=== PATIENT | male | born 1930 | race Caucasian/White ===

== ENCOUNTER 2016-06-20 16:13 | Inpatient (IN) | payer MEDICARE ==
--- NOTE | ~2016-06-20 | DS ---
Discharge Summary [facility] [address] [place]. [address] NAME: PERLA GONSALES : 32 STATUS : DIS IN PAT#: [id number] AGE: 86 ADM/REG DATE : 06/20/16 MR#: [id number] REPORT SERV DATE: 06/24/16 DICTATED BY: ANABELL PHELPS DATE: 06/23/16 REPORT STATUS : Draft TRANSCRIBED BY: MODL DATE: 06/23/16 ADMISSION DATE: 06/20/2016 DISCHARGE DATE: 06/23/2016 DISCHARGE DIAGNOSES: 1. Atrial fibrillation with rapid ventricular rate. Cardizem CD 180 mg once a day was added and his metoprolol was increased to 125 mg twice a day. 2. Congestive heart failure, acute systolic dysfunction, which resolved. 3. Clinical chronic obstructive pulmonary disease exacerbation. 4. Chronic Coumadin use. His INR has been supratherapeutic and we are going to resume his Coumadin dose in two days. CONSULT: Dr. Garza. PROCEDURES: Echocardiogram showed mild decreased left ventricular systolic function with an estimated ejection fraction of 40%. Probable right ventricle chamber size and systolic being intact; however, has moderate severe biatrial enlargement with mild tricuspid regurg and mitral regurg. HISTORY OF PRESENT ILLNESS: This is an 86-year-old male patient, who came to the hospital after seen by the [facility] emergency room. Please see dictated H and P. HOSPITAL COURSE: He was admitted to hospital with acute heart failure. He had a diuresis treatment and recovered very quickly. However, his x-ray was showing more reticular fibrotic change. He was also put on the bronchodilator treatment. His oxygen was much improved and his symptoms improved. Had a repeated echocardiogram at this time, which showed mildly decreased left ventricular function. His heart rate has been range of 80 to 140s through the hospital stay. However, he never felt any palpitation or flow rate at all. His beta-domenico was increased to 125 mg twice a day and Cardizem was added on the regimen and also, he is on anticoagulation with Coumadin, which was on hold for three days due to the supratherapeutic INR. Now, he is ambulating in the hallway without any problem. He will follow by Dr. Garza as an outpatient. He will be discharged to home in stable condition. DISCHARGE MEDICATIONS: 1. Metoprolol was increased to 125 mg twice a day. 2. Cardizem CD 180 mg once a day. 3. Lasix 40 mg once a day. 4. Hydrea 500 mg twice a day. 5. Lisinopril 5 mg once a day. 6. Flomax 0.4 mg once a day. 7. Coumadin 2 mg once in the nighttime. We are going to restart on 06/24/2016. 8. Digoxin 0.125 mg once a day and will be resumed on 06/24/2016. DISPOSITION: The patient is discharged home in stable condition after recovering from the heart failure and COPD exacerbation clinically and also, we made an appointment at Pulmonary Discharge [address] [address] NAME: PERLA GONSALES : 32 STATUS : DIS IN PAT#: [id number] AGE: 86 ADM/REG DATE : 06/20/16 MR#: [id number] REPORT SERV DATE: 06/24/16 DICTATED BY: ANABELL PHEPLS DATE: 06/23/16 REPORT STATUS : Draft TRANSCRIBED BY: GT DATE: 06/23/16 Clinic for further evaluation for reticular change on the x-rays. EKL/MODL Anabell Phelps M.D. / [id number] CC: Teresa Hillman MD
--- NOTE | ~2016-06-20 | CN ---
Consultation Report [facility] [address] [place]. [address] NAME: PERLA MEJIAS : 32 STATUS : ADM IN PAT#: [id number] AGE: 86 ADM/REG DATE : 06/20/16 MR#: [id number] REPORT SERV DATE: 06/21/16 DICTATED BY: APPLE BLANDON DATE: 06/20/16 REPORT STATUS : Draft TRANSCRIBED BY: MODL DATE: 06/20/16 CARDIOLOGY CONSULTATION. DATE OF CONSULTATION: 06/20/2016 REQUESTING PHYSICIAN: Anabell Phelps M.D. REASON FOR CONSULTATION: Probable congestive heart failure and atrial fibrillation. HISTORY OF PRESENT ILLNESS: Mr. Mejias is an 86-year-old gentleman who has been seeing physicians from the [facility] for some time. His most recent physician was Dr. Yaniv Ferrell who moved away about a year ago and he has not yet seen another [facility] physician. In the last few weeks, he has been having complaints of increasing shortness of breath and cough. He thought he may be having some chills and a low-grade fever as well. He went to a local urgent care office who had given him some erythromycin, but his symptoms did not improve. Last night, while lying down, he became very short of breath and ended up presenting to the [facility] emergency room with these complaints. There he underwent a chest x-ray. There was some question of a perihilar infiltrate, but laboratory work also demonstrated a very elevated natriuretic peptide of 11,941. The rest of his laboratory values were essentially unremarkable. His white count was 7.6, hematocrit was 35. Given that his care has basically been at [facility], he was accepted in transfer by Dr. Phelps. The patient has a known history of a nonischemic cardiomyopathy, ejection fraction of 35%. He has a history of chronic atrial fibrillation and is status post permanent pacemaker that was placed several years ago by Dr. Sutherland, his original [facility] marketing financial analyst. PAST MEDICAL HISTORY: Notable for: 1. Nonischemic cardiomyopathy, ejection fraction 35%. 2. Chronic atrial fibrillation. 3. History of a single-chamber pacemaker. HOME MEDICATIONS: Include digoxin, Lasix, Zestril, metoprolol, Flomax, and warfarin. FAMILY HISTORY: Noncontributory. Negative for premature coronary artery disease. SOCIAL HISTORY: Negative for tobacco or alcohol. REVIEW OF SYSTEMS: As noted above. All other systems reviewed are negative. PHYSICAL EXAMINATION: VITAL SIGNS: His blood pressure is 130/78, room air sat 93%, pulse of 110, in atrial fibrillation, respirations 16, he is afebrile. Consultation Report [facility] [address] [place]. [address] NAME: PERLA MEJIAS : 32 STATUS : ADM IN PAT#: [id number] AGE: 86 ADM/REG DATE : 06/20/16 MR#: [id number] REPORT SERV DATE: 06/21/16 DICTATED BY: APPLE BLANDON DATE: 06/20/16 REPORT STATUS : Draft TRANSCRIBED BY: GT DATE: 06/20/16 GENERAL: He is in no acute distress. Well developed, well nourished. HEENT: No icterus. Good dentition. NECK: Supple. No masses or thyromegaly LUNGS: Note some scattered wheezes in the lung allred. Breathing comfortably. No rales. COR: Irregularly irregular rhythm. Normal S1, S2. No S3 or S4. No murmurs, clicks, rubs. No JVD ABD: Soft, nondistended, nontender, no hepatosplenomegaly. EXT: No clubbing, cyanosis or edema. Peripheral pulses 2+/=bilaterally. SKIN: Warm and dry. No visible lesions. MS: Chest wall without deformity, no obvious clavicular fractures. NEURO/PSYCH: Oriented X3. No anxiety or depression. DIAGNOSTIC STUDIES: Telemetry reveals patient to be in atrial fibrillation with elevated ventricular response. EKG performed at [facility] shows atrial fibrillation, rapid ventricular response of 142 beats per minute, leftward axis, nonspecific ST-T wave abnormalities. Laboratory values otherwise show a PT/INR of 4.1. IMPRESSION: Likely congestive heart failure due to acute on chronic congestive heart failure secondary to left ventricle systolic dysfunction. PLAN: 1. IV diuresis. We will need to watch carefully for worsening renal insufficiency. 2. Continue patient's use of metoprolol and lisinopril. 3. Atrial fibrillation. This appears to be chronic. He is already on warfarin, although I would recommend holding at least tonight's dose and having pharmacy dose as his PT/INR is supratherapeutic. In terms of the rapid ventricular response, this is improving and likely will continue to improve as IV diuresis occurs and the patient has less respiratory distress. 4. We will plan for echocardiogram to reassess LV systolic function. ELLEN/GT Apple Blandon M.D. / [id number]
--- NOTE | ~2016-06-20 | HP ---
History And Physical [place] [id number] [place]. [address] NAME: PERLA GONSALES : 32 STATUS : ADM IN [facility]#: [id number] AGE: 86 ADM/REG DATE : 06/20/16 MR#: [id number] REPORT SERV DATE: 06/20/16 DICTATED BY: ANABELL PHELPS DATE: 06/20/16 REPORT STATUS : Draft TRANSCRIBED BY: MODL DATE: 06/20/16 DATE OF ADMISSION: 06/20/2016 CHIEF COMPLAINT: Short of breath, started giving him trouble very much last night. HISTORY OF PRESENT ILLNESS: This is an 86-year-old male patient, who has been having this shortness of breath for about three to four weeks, had to go to the emergency room at the [facility] today because last night was significantly severe. He was not able to sleep and also he was coughing all night. It has been going on for a few weeks. He visited an urgent care a few weeks ago when he started having this problem. At that time, he was treated with a dose of antibiotics and also injection of some medication. He had a little improvement; however, his shortness of breath gradually came back again. Last night, he was not able to have any good sleep. He noticed orthopnea last night and also dry cough. Denies any fever. Denies any nausea or vomiting. Denies any weight gain. He does have [id number] lower extremity swelling since the atrial fibrillation. He has diagnosis of atrial fibrillation with sick sinus syndrome. Dr. Juares was his primary healthcare advisory services manager in the past, who implanted his pacemaker. Since he is retired, he had Dr. Ferrell. The last visit with Dr. Ferrell was two years ago. However, Dr. Ferrell left practice, now he is supposed to see Dr. Hodge, but he never met Dr. Hodge. He believes his last pacemaker interrogation was three months ago. His cough has been dry. There is no running of fever. No nausea, vomiting. No changes in urination habit or any constipation or diarrhea. He denies any bleeding including melena or hematochezia. Therefore, he was found to have atrial fibrillation with rapid rate at [facility] and the patient has been subsequently transferred to the [facility] to get further evaluation and treatment. Currently, he has had shortness of breath and cough in dry nature. Does not have any chest pain. REVIEW OF SYSTEMS: All systems reviewed and negative, but mentioned above. PAST MEDICAL HISTORY: 1. Atrial fibrillation. 2. History of pacemaker. 3. Congestive heart failure. EF was 35%, echocardiogram 2012. 4. Hypertension. 5. Colon cancer, status post colectomy. 6. Prostate cancer, status post radiation. History And Physical [address] [address] NAME: PERLA GONSALES : 32 STATUS : ADM IN [facility]#: [id number] AGE: 86 ADM/REG DATE : 06/20/16 MR#: [id number] REPORT SERV DATE: 06/20/16 DICTATED BY: ANABELL PHELPS DATE: 06/20/16 REPORT STATUS : Draft TRANSCRIBED BY: GT DATE: 06/20/16 SURGERIES: Had a colectomy. ALLERGIES: NO KNOWN DRUG ALLERGIES. SOCIAL HISTORY: 1. He used to smoked a couple of packs a day since age 17, but he quit more than five years ago. 2. Denies any continuous drinking, but he gets an occasional glass of wine. 3. He does not need any walking aids and he still drives a car. He lives with his . MEDICATIONS AT HOME: 1. Furosemide 40 mg once a day. 2. Hydrea 500 mg twice a day. 3. Lisinopril 5 mg twice a day. 4. Metoprolol 100 mg twice a day. 5. Flomax 0.4 mg once a day. 6. Warfarin 2 mg once a day. FAMILY HISTORY: Noncontributory. PHYSICAL EXAMINATION: VITAL SIGNS: Blood pressure is 130/78, respiratory rate is 18, temperature was 97.9, saturation is 93% room air. GENERAL APPEARANCE: He is alert, awake, and not in acute distress. Elderly gentleman. HEENT: Pupils are equal, round, and reactive to light. Conjunctivae are not anemic. NECK: There is jugular venous distention noted. No nodes palpable. CHEST: Lower left side has crackles. Otherwise clear. CARDIOVASCULAR: Has irregular rate and I do not appreciate significant murmurs, rubs, or gallops. ABDOMEN: Bowel sounds present and soft. EXTREMITIES: Pulses are intact. Cold extremities. LABORATORY DATA: From the [facility] showed sodium 138, potassium 3.8, chloride 102, bicarb 29, BUN 26, creatinine 1.1. Blood sugar was 174. WBC was 7.6, hemoglobin 12, platelet count was 535. BNP was 11,941. Troponin was 0.02. Chest x-ray was reviewed from the [facility]. Has some vascular congestion. ASSESSMENT AND PLAN: 1. Atrial fibrillation with rapid ventricular rate. 2. Acute on chronic systolic dysfunction. 3. Chronic kidney disease. 4. History of prostate and colon cancer. 5. Chronic atrial fibrillation. 6. Chronic Coumadin use. The patient will be admitted to cardiac monitoring unit. We are going to consult healthcare advisory services manager, resume beta-domenico, and rate control with additional History And Physical [address] [address] NAME: PERLA GONSALES : 32 STATUS : ADM IN [facility]#: [id number] AGE: 86 ADM/REG DATE : 06/20/16 MR#: [id number] REPORT SERV DATE: 06/20/16 DICTATED BY: ANABELL PHELPS DATE: 06/20/16 REPORT STATUS : Draft TRANSCRIBED BY: MODL DATE: 06/20/16 calcium channel domenico. Also, we are going to administrate IV diuretics and we are going to repeat echocardiogram, and he voiced understanding about the current plan of care and all the questions are answered. EKL/MODL Anabell Phelps M.D. / [id number] CC: Teresa Hillman Jr., M.D. Martha Ziegler, MD
[~2016-06-20 16:13] MED LIST: CARDCD300 PO; FLOMAX4 PO; HYDREA PO; JANTOVEN2.5 MG PO; LOP50 PO
[2016-06-20] MEDS ORDERED: L40 PO (18:42)
[2016-06-20] MEDS ORDERED: VITAMIN D1000 UNI1 PO (18:42)
[2016-06-20] MEDS ORDERED: LOP100 PO (18:42)
[2016-06-20] MEDS ORDERED: FLOMAX4 PO (18:43)
[2016-06-20] MEDS ORDERED: ZESTRIL5 MG PO (18:43)
[2016-06-20] MEDS ORDERED: HYDREA PO (18:43)
[2016-06-20] MEDS ORDERED: LAN125 PO (18:43)
[2016-06-20] MEDS ORDERED: JANTOVEN2 MG PO (18:44)
[2016-06-20 19:17] LABS: INTERNATIONAL NORMAL RATI 4.1 UNITS (-)
[2016-06-20 19:18] LABS: PROTIME (NOT ORD) 39.3 SEC (12.0-14.5)
[2016-06-21 05:45] LABS: INTERNATIONAL NORMAL RATI 4.6 UNITS (-)
[2016-06-21 05:46] LABS: PROTIME (NOT ORD) 42.8 SEC (12.0-14.5)
[2016-06-21 05:54] LABS: CALCIUM, SERUM 8.3 MG/DL (8.5-10.4); CHLORIDE, SERUM 104 MMOL/L (96-112); CO2 (CARBON DIOXIDE) 27 MMOL/L (24-34); CREATININE 0.99 MG/DL (0.70-1.30); GFR AFRICAN AMERICAN 81 ML/MIN (>=60); GFR NON AFRICAN AMERICAN 70 ML/MIN (>=60); SODIUM, SERUM 140 MMOL/L (135-148)
[2016-06-21 05:58] LABS: BUN (BLOOD UREA NITROGEN) 21 MG/DL (6-23); GLUCOSE, SERUM 103 MG/DL (60-99)
[2016-06-22 07:20] LABS: INTERNATIONAL NORMAL RATI 3.3 UNITS (-); PROTIME (NOT ORD) 33.3 SEC (12.0-14.5)
[2016-06-22 07:21] LABS: BASOPHILS 0.1 %; BASOPHILS ABSOLUTE 0.01 10/3/uL (0.0-0.16); EOSINOPHILS 0 %; HEMATOCRIT 34.6 % (40.0-51.0); HEMOGLOBIN 12.3 g/dL (13.6-17.8); IMMATURE GRANULOCYTES 0.6 %; IMMATURE GRANULOCYTES ABSOLUTE 0.06 10/3/uL (0.0-0.11); LYMPHOCYTES 4.8 %; MEAN CORPUS HGB CONC 35.5 g/dL (32.0-36.0); MEAN CORPUSCULAR HEMOGLOB 46.2 pg (26.0-34.0); MEAN PLATELET VOLUME 9.4 fL (9.2-13.0); MONOCYTES 1.9 %; NEUTROPHILS 92.6 %; NEUTROPHILS ABSOLUTE 9.71 10/3/uL (2.02-8.40); RBC DISTRIBUTION WIDTH 13.7 % (12.0-16.0); WHITE BLOOD CELLS 10.5 10/3/uL (4.5-10.5)
[2016-06-22 07:23] LABS: MANUAL DIFF NO %; MEAN CORPUSCULAR VOLUME 130.1 fL (80-100); PLATELET COUNT 510 10/3/uL (150-400); RED CELL COUNT 2.66 10/6/uL (4.7-6.1)
[2016-06-22 07:30] LABS: A/G RATIO 0.8 (0.7-1.9); ALBUMIN 2.8 G/DL (3.5-5.0); ALKALINE PHOSPHATASE 107 U/L (45-117); CALCIUM, SERUM 8.3 MG/DL (8.5-10.4); CHLORIDE, SERUM 103 MMOL/L (96-112); CO2 (CARBON DIOXIDE) 26 MMOL/L (24-34); GFR AFRICAN AMERICAN 64 ML/MIN (>=60); GFR NON AFRICAN AMERICAN 55 ML/MIN (>=60); GLOBULIN 3.6 G/DL (2.5-4.1); POTASSIUM, SERUM 4.2 MMOL/L (3.5-5.3); SGOT(AST) 16 U/L (5-40); SGPT(ALT) 23 U/L (5-65); SODIUM, SERUM 140 MMOL/L (135-148); TOTAL BILIRUBIN 0.6 MG/DL (0-1.2); TOTAL PROTEIN 6.4 G/DL (6.0-8.5)
[2016-06-22 07:31] LABS: BUN (BLOOD UREA NITROGEN) 28 MG/DL (6-23); GLUCOSE, SERUM 174 MG/DL (60-99)
[2016-06-22 08:38] LABS: MACROCYTES 4+ (>50/OIF) (0-5/OIF); PLATELET ESTIMATE SLT INC (ADEQUATE)
[2016-06-22 08:39] LABS: POLYCHROMASIA 1+ (2-5/OIF) (0-1/OIF); TOXIC GRANULATION 1+
[2016-06-23 04:39] LABS: INTERNATIONAL NORMAL RATI 3.2 UNITS (-); PROTIME (NOT ORD) 32.8 SEC (12.0-14.5)
[2016-06-23 04:49] LABS: CALCIUM, SERUM 8.5 MG/DL (8.5-10.4); CHLORIDE, SERUM 100 MMOL/L (96-112); CO2 (CARBON DIOXIDE) 27 MMOL/L (24-34); POTASSIUM, SERUM 4.3 MMOL/L (3.5-5.3); SODIUM, SERUM 135 MMOL/L (135-148)
[2016-06-23 04:56] LABS: BUN (BLOOD UREA NITROGEN) 51 MG/DL (6-23); CREATININE 1.83 MG/DL (0.70-1.30); GFR AFRICAN AMERICAN 38 ML/MIN (>=60); GFR NON AFRICAN AMERICAN 33 ML/MIN (>=60); GLUCOSE, SERUM 133 MG/DL (60-99)
[2016-06-23] MEDS ORDERED: CARDCD180 PO (14:58)
[2016-06-23] MEDS ORDERED: LOP25 PO (14:59)
== END 2016-06-23 15:54 | disposition home or self-care (01) | DRG 308 ==
LOC: 5NO 16:13
PROVIDERS: Internal Medicine
DX: I48.91 Unspecified atrial fibrillation (principal); I50.23 Acute on chronic systolic (congestive) heart failure; I13.0 Hypertensive heart and chronic kidney disease with heart failure and stage 1 through stage 4 chronic kidney disease, or unspecified chronic kidney disease; J44.1 Chronic obstructive pulmonary disease with (acute) exacerbation; N18.9 Chronic kidney disease, unspecified; Z79.01 Long term (current) use of anticoagulants; Z85.46 Personal history of malignant neoplasm of prostate; Z85.038 Personal history of other malignant neoplasm of large intestine; Z95.0 Presence of cardiac pacemaker; Z87.891 Personal history of nicotine dependence
CPT/HCPCS: 71020; 80048; 80053; 82962; 83880; 85025; 85610; 94640; A9270-GY; C8929; J2930; Q9957